=== PATIENT | female | born 1950 | race African-American/Black ===

== ENCOUNTER 2017-05-12 13:43 | Inpatient (IN) | payer OTHER ==
[~2017-05-12] VITALS: Ht 175.3 cm; Wt 108.0 kg
[2017-05-12] MEDS ORDERED: SODIUM CHLORIDE 0.9% 1,000 ML IVB ONE (14:05)
[2017-05-12] MEDS ORDERED: ACETAMINOPHEN 500 MG TAB PO ONE (14:15)
[2017-05-12] MEDS ORDERED: LEVOFLOXACIN 500MG 100 ML IV ONE (14:15)
[2017-05-12 14:51] LABS: Basophils # (auto) 0.2 uL; Lymphocytes # (auto) 2.7 uL; Mean Corpuscular Hemoglobin 24.3 pg (28.0-32.0); Mean Corpuscular Hgb Conc. 31.3 g/dL (32.0-36.0)
[2017-05-12 14:53] LABS: Basophils % (auto) 0.6 % (0.0-2.0); Eosinophils # (auto) 0 uL; Eosinophils % (auto) 0.1 % (0.0-7.0); Hematocrit 38.1 % (36.0-46.0); Lymphocytes % (auto) 9.1 % (10.0-50.0); Mean Corpuscular Volume 77.4 fL (80.0-100.0); Monocytes # (auto) 1.7 uL; Monocytes % (auto) 5.6 % (0.0-12.0); Neutrophils # (auto) 25.3 uL; Neutrophils % (auto) 84.6 % (37.0-80.0); Platelet Count (auto) 397 10^3/uL (140-450); Red Blood Cells 4.93 10^6/uL (4.0-5.20); White Blood Cell 29.9 10^3/uL (4.4-10.8)
[2017-05-12 15:06] LABS: INR 1.28 (0.9-1.15)
[2017-05-12 15:09] LABS: Albumin 3.2 g/dL (3.4-5.0); BUN/Creatinine Ratio 9.6; Bilirubin, Total 2.1 mg/dL (0.2-1.0); Calcium 8.9 mg/dL (8.5-10.1); Potassium 3.1 mmol/L (3.5-5.1); Total Protein 8.6 g/dL (6.4-8.2)
[2017-05-12 15:18] LABS: Magnesium 2.2 mg/dL (1.6-2.6)
[2017-05-12] MEDS ORDERED: POTASSIUM CHL 20MEQ/100ML 100 ML IV ONE (15:45)
[2017-05-12] MEDS ORDERED: OSELTAMIVIR 75 MG CAP PO ONE (16:30)
[2017-05-12] MEDS ORDERED: SODIUM CHLORIDE 0.9% 1,000 ML IV ONE (16:30)
[2017-05-12] MEDS ORDERED: POTASSIUM CHL 20 Meq TABLET PO ONE (16:30)
[2017-05-12] MEDS ORDERED: PANTOPRAZOLE 40 MG/10 ML VIAL IV ONE (16:30)
[2017-05-12] MEDS ORDERED: ACETAMINOPHEN 500 MG TAB PO PRN (16:45)
[2017-05-12] MEDS: BUDESONIDE (INHALATION) 0.5 MG/2 ML NEB NEB SCH (18:10)
[2017-05-12] MEDS: IPRATROPIUM BROM 0.5 MG/2.5ML INH SOL NEB SCH (18:10)
[2017-05-12] MEDS: ALBUTEROL SULF 2.5 MG/0.5ML(0.5%) NEB SOLN NEB SCH (18:10)
[2017-05-12 19:02] LABS: Urine Bacteria FEW /hpf (None Seen); Urine Blood 1+ /uL (Negative); Urine Mucus FEW (None Seen); Urine Specific Gravity 1.011 (1.001-1.035); Urine WBC 616 /hpf (0 - 5)
[2017-05-12] MEDS: metroNIDAZOLE 500 MG TAB PO SCH (20:18)
[2017-05-12 22:00] VITALS: BP 123/64
[2017-05-12 22:38] VITALS: BP 107/58
[2017-05-12 23:47] VITALS: BP 123/64
[2017-05-13] MEDS ORDERED: PRED5PAK PO (01:27)
[2017-05-13] MEDS ORDERED: GUAI200T2 PO (01:41)
[2017-05-13] MEDS ORDERED: FLUT110A INH (01:43)
[2017-05-13] MEDS: ALBUTEROL SULF 2.5 MG/0.5ML(0.5%) NEB SOLN NEB SCH ×3 (01:43→10:08)
[2017-05-13] MEDS ORDERED: TIOTCAP IN (01:43)
[2017-05-13] MEDS: IPRATROPIUM BROM 0.5 MG/2.5ML INH SOL NEB SCH ×5 (01:44→19:30)
[2017-05-13 05:00] VITALS: BP 105/56
[2017-05-13] MEDS: metroNIDAZOLE 500 MG TAB PO SCH (05:42)
[2017-05-13] MEDS: PANTOPRAZOLE 40 MG/10 ML VIAL IV SCH (06:40)
[2017-05-13] MEDS ORDERED: PNEUMOCOCCAL VACC POLYS 25 MCG/0.5 ML VIAL IM ONE ×2 (07:00→10:00)
[2017-05-13] MEDS ORDERED: INFLUENZA QUAD 2017-2018 0.5 ML SYRG IM ONE (07:00)
[2017-05-13 07:28] LABS: Basophils % (auto) 0.3 % (0.0-2.0); Eosinophils # (auto) 0.2 uL; Monocytes # (auto) 0.8 uL
[2017-05-13 07:31] LABS: Basophils # (auto) 0 uL; Hematocrit 31.9 % (36.0-46.0); Lymphocytes % (auto) 5.6 % (10.0-50.0); Mean Corpuscular Hemoglobin 24.1 pg (28.0-32.0); Mean Corpuscular Hgb Conc. 31.5 g/dL (32.0-36.0); Mean Corpuscular Volume 76.7 fL (80.0-100.0); Monocytes % (auto) 4.5 % (0.0-12.0); Neutrophils # (auto) 15.9 uL; Neutrophils % (auto) 88.6 % (37.0-80.0); Platelet Count (auto) 342 10^3/uL (140-450); Red Blood Cells 4.16 10^6/uL (4.0-5.20); Red Cell Distribution Width 17.2 % (11.8-14.3); White Blood Cell 17.9 10^3/uL (4.4-10.8)
[2017-05-13 07:47] LABS: Albumin 2.6 g/dL (3.4-5.0); BUN/Creatinine Ratio 10.4; Bilirubin, Total 1.2 mg/dL (0.2-1.0); Calcium 8.6 mg/dL (8.5-10.1); Potassium 3.7 mmol/L (3.5-5.1); Total Protein 7.1 g/dL (6.4-8.2)
[2017-05-13 08:16] VITALS: BP 117/63
[2017-05-13] MEDS: LEVOFLOXACIN 500MG 100 ML IV SCH (09:48)
[2017-05-13] MEDS ORDERED: OSELTAMIVIR 30 MG CAP PO SCH (10:00)
[2017-05-13] MEDS: BUDESONIDE (INHALATION) 0.5 MG/2 ML NEB NEB SCH ×2 (10:09→19:30)
[2017-05-13 11:58] VITALS: BP 102/59
[2017-05-13] MEDS ORDERED: SODIUM CHLORIDE 0.9% 1,000 ML IV ONE ×2 (12:30)
[2017-05-13] MEDS ORDERED: VANCOMYCIN 1GM/250ML 250 ML IV ONE (12:30)
[2017-05-13] MEDS ORDERED: VANCOMYCIN PER PHARMACY 1,000 MG IV SCH (12:30)
[2017-05-13] MEDS ORDERED: methylPREDNISolone SOD SUCC 125 MG/2 ML VL IV ONE (12:45)
[2017-05-13] MEDS: VANCOMYCIN 1GM/250ML 250 ML IV SCH (14:11)
[2017-05-13] MEDS: LEVALBUTEROL HCL 1.25 MG/0.5 ML NEB SOLN NEB SCH ×2 (14:16→19:30)
[2017-05-13 16:16] VITALS: BP 126/86
[2017-05-13] MEDS: PIPERACILLIN-TAZOB 3.375GM 100 ML IV SCH ×2 (18:07→23:37)
[2017-05-13 22:17] VITALS: BP 121/78
[2017-05-14] MEDS: VANCOMYCIN 1GM/250ML 250 ML IV SCH ×2 (01:34→15:16)
[2017-05-14 05:36] VITALS: BP 122/67
[2017-05-14] MEDS: PIPERACILLIN-TAZOB 3.375GM 100 ML IV SCH ×4 (06:10→23:53)
[2017-05-14] MEDS: IPRATROPIUM BROM 0.5 MG/2.5ML INH SOL NEB SCH ×4 (06:27→20:09)
[2017-05-14] MEDS: LEVALBUTEROL HCL 1.25 MG/0.5 ML NEB SOLN NEB SCH ×3 (06:27→20:09)
[2017-05-14 07:10] LABS: Basophils # (auto) 0 uL; Eosinophils # (auto) 0 uL; Lymphocytes # (auto) 0.5 uL; Monocytes # (auto) 0.2 uL; White Blood Cell 11.3 10^3/uL (4.4-10.8)
[2017-05-14 07:14] LABS: Basophils % (auto) 0.1 % (0.0-2.0); Hemoglobin 10.1 g/dL (12.2-16.2); Lymphocytes % (auto) 4.3 % (10.0-50.0); Mean Corpuscular Hemoglobin 24.1 pg (28.0-32.0); Mean Corpuscular Hgb Conc. 31.5 g/dL (32.0-36.0); Mean Corpuscular Volume 76.7 fL (80.0-100.0); Neutrophils # (auto) 10.6 uL; Neutrophils % (auto) 93.6 % (37.0-80.0); Platelet Count (auto) 378 10^3/uL (140-450); Red Blood Cells 4.17 10^6/uL (4.0-5.20); Red Cell Distribution Width 17.1 % (11.8-14.3)
[2017-05-14 08:16] LABS: Albumin 2.8 g/dL (3.4-5.0); BUN/Creatinine Ratio 10.3; Bilirubin, Total 0.8 mg/dL (0.2-1.0); Calcium 9.3 mg/dL (8.5-10.1); Potassium 3.8 mmol/L (3.5-5.1)
[2017-05-14 09:00] VITALS: BP 130/64
[2017-05-14] MEDS: PANTOPRAZOLE 40 MG/10 ML VIAL IV SCH (09:53)
[2017-05-14] MEDS: methylPREDNISolone SOD SUCC 125 MG/2 ML VL IV SCH (09:53)
[2017-05-14] MEDS: LEVOFLOXACIN 500MG 100 ML IV SCH (09:54)
[2017-05-14] MEDS ORDERED: PNEUMOCOCCAL VACC POLYS 25 MCG/0.5 ML VIAL IM ONE (10:00)
[2017-05-14] MEDS: BUDESONIDE (INHALATION) 0.5 MG/2 ML NEB NEB SCH ×2 (10:12→20:09)
[2017-05-14 12:00] VITALS: BP 124/56
[2017-05-14 17:36] VITALS: BP 108/78
[2017-05-14 21:56] VITALS: BP 136/65
[2017-05-14] MEDS ORDERED: hydrOXYzine 25 MG TAB or CAP PO SCH (22:00)
[2017-05-15] MEDS: VANCOMYCIN 1GM/250ML 250 ML IV SCH (02:02)
[2017-05-15 04:59] VITALS: BP 143/77
[2017-05-15] MEDS: PIPERACILLIN-TAZOB 3.375GM 100 ML IV SCH (06:10)
[2017-05-15 06:52] LABS: Basophils # (auto) 0 uL; Basophils % (auto) 0.1 % (0.0-2.0); Eosinophils # (auto) 0 uL; Mean Corpuscular Hgb Conc. 31.1 g/dL (32.0-36.0); Neutrophils # (auto) 12.8 uL
[2017-05-15 06:54] LABS: Eosinophils % (auto) 0.1 % (0.0-7.0); Hematocrit 29.1 % (36.0-46.0); Lymphocytes # (auto) 2.2 uL; Lymphocytes % (auto) 13.7 % (10.0-50.0); Mean Corpuscular Hemoglobin 23.9 pg (28.0-32.0); Mean Corpuscular Volume 76.9 fL (80.0-100.0); Monocytes # (auto) 0.8 uL; Monocytes % (auto) 5.3 % (0.0-12.0); Neutrophils % (auto) 80.8 % (37.0-80.0); Platelet Count (auto) 371 10^3/uL (140-450); Red Blood Cells 3.78 10^6/uL (4.0-5.20); Red Cell Distribution Width 17.2 % (11.8-14.3); White Blood Cell 15.8 10^3/uL (4.4-10.8)
[2017-05-15 07:09] LABS: Calcium 9.2 mg/dL (8.5-10.1); Potassium 3.6 mmol/L (3.5-5.1)
[2017-05-15 07:21] LABS: Albumin 2.7 g/dL (3.4-5.0); Bilirubin, Total 0.7 mg/dL (0.2-1.0); Total Protein 7.1 g/dL (6.4-8.2)
[2017-05-15] MEDS: LEVALBUTEROL HCL 1.25 MG/0.5 ML NEB SOLN NEB SCH (07:25)
[2017-05-15] MEDS: IPRATROPIUM BROM 0.5 MG/2.5ML INH SOL NEB SCH ×2 (07:25→10:47)
[2017-05-15] MEDS: BUDESONIDE (INHALATION) 0.5 MG/2 ML NEB NEB SCH (07:26)
[2017-05-15 08:00] VITALS: BP 123/73
[2017-05-15] MEDS ORDERED: CALCIUM CARB 500 MG CHEW TAB PO ONE (09:00)
[2017-05-15] MEDS: PANTOPRAZOLE 40 MG/10 ML VIAL IV SCH (09:32)
[2017-05-15] MEDS: LEVOFLOXACIN 500MG 100 ML IV SCH (09:32)
[2017-05-15] MEDS: methylPREDNISolone SOD SUCC 125 MG/2 ML VL IV SCH (09:32)
[2017-05-15 10:04] VITALS: BP 123/73
== END 2017-05-15 12:00 | disposition home or self-care (01) | DRG 871 ==
LOC: ER 13:43 → OVERFLOW 13:44 → EAST 23:19
PROVIDERS: ADMIT Internal Medicine; ATTEND Family Medicine
DX: A41.9 Sepsis, unspecified organism (principal); J18.1 Lobar pneumonia, unspecified organism; R65.21 Severe sepsis with septic shock; E87.1 Hypo-osmolality and hyponatremia; J45.901 Unspecified asthma with (acute) exacerbation; N39.0 Urinary tract infection, site not specified; M16.12 Unilateral primary osteoarthritis, left hip; Z60.2 Problems related to living alone; E87.6 Hypokalemia; E86.0 Dehydration; Z23 Encounter for immunization; Z79.82 Long term (current) use of aspirin; Z88.5 Allergy status to narcotic agent
CPT/HCPCS: 36415; 71045; 80053; 80202; 81001; 82565; 83605; 83735; 84484; 85025; 85610; 85730; 87040; 87070; 87086; 87205; 87804; 93005; 94640; 96365; 96375; 99291; C9113; G9035; J1956; J2543; J3480

== ENCOUNTER 2017-11-16 13:49 | Inpatient (IN) | payer OTHER ==
[~2017-11-16] VITALS: Ht 175.3 cm; Wt 96.8 kg
[~2017-11-16 13:49] MED LIST: FLUT110A INH; GUAI200T2 PO; PRED5PAK PO; TIOTCAP IN
[2017-11-16] MEDS ORDERED: ALBUTEROL SULF 2.5 MG/0.5ML(0.5%) NEB SOLN HHN ONE (14:15)
[2017-11-16] MEDS ORDERED: methylPREDNISolone SOD SUCC 125 MG/2 ML VL IV ONE (14:15)
[2017-11-16] MEDS ORDERED: IPRATROPIUM BROM 0.5 MG/2.5ML INH SOL HHN ONE (14:15)
[2017-11-16 15:13] LABS: Eosinophils # (auto) 0.3 uL; Hemoglobin 11.1 g/dL (12.2-16.2); Neutrophils # (auto) 13.3 uL; Nucleated Red Blood Cells % 0.2 %
[2017-11-16 15:15] LABS: Basophils # (auto) 0.1 uL; Basophils % (auto) 0.6 % (0.0-2.0); Eosinophils % (auto) 2.1 % (0.0-7.0); Hematocrit 35.5 % (36.0-46.0); Lymphocytes % (auto) 6.6 % (10.0-50.0); Mean Corpuscular Hemoglobin 25.2 pg (28.0-32.0); Mean Corpuscular Hgb Conc. 31.4 g/dL (32.0-36.0); Mean Corpuscular Volume 80.3 fL (80.0-100.0); Monocytes # (auto) 0.5 uL; Monocytes % (auto) 3.3 % (0.0-12.0); Neutrophils % (auto) 87.4 % (37.0-80.0); Platelet Count (auto) 444 10^3/uL (140-450); Red Blood Cells 4.42 10^6/uL (4.0-5.20); Red Cell Distribution Width 15.9 % (11.8-14.3); White Blood Cell 15.2 10^3/uL (4.4-10.8)
[2017-11-16 15:40] LABS: Alanine Aminotransferase 23 U/L (13-56); Albumin 3.4 g/dL (3.4-5.0); Alkaline Phosphatase 126 U/L (45-117); Anion Gap 11 (5-15); Aspartate Aminotransferase 14 U/L (15-37); BUN/Creatinine Ratio 14.3; Bilirubin, Total 0.3 mg/dL (0.2-1.0); Blood Urea Nitrogen 14 mg/dL (7-18); Calcium 8.8 mg/dL (8.5-10.1); Carbon Dioxide 22 mmol/L (21-32); Chloride 106 mmol/L (98-107); GFR African American 73 mL/min; GFR Non-African American 60 mL/min; Glucose 94 mg/dL (74-106); Magnesium 2.8 mg/dL (1.6-2.6); Potassium 3.8 mmol/L (3.5-5.1); Sodium 139 mmol/L (136-145); Total Protein 8.5 g/dL (6.4-8.2)
[2017-11-16] MEDS: methylPREDNISolone SOD SUCC 40 MG/ML VL IV SCH (18:00)
[2017-11-16] MEDS ORDERED: cefTRIAXone 1GM/10ml IVPUSH 10 ML IV ONE (18:00)
[2017-11-16] MEDS ORDERED: cloNIDine HCL 0.1 MG TAB PO PRN (18:15)
[2017-11-16] MEDS ORDERED: PANTOPRAZOLE 40 MG TAB PO ONE (18:15)
[2017-11-16] MEDS ORDERED: HYDROcodone-ACET 5/325MG TAB PO PRN (18:15)
[2017-11-16] MEDS ORDERED: DOCUSATE SOD 100 MG CAP PO PRN (18:15)
[2017-11-16] MEDS ORDERED: TEMAZEPAM 15 MG CAP PO PRN (18:15)
[2017-11-16] MEDS ORDERED: MORPHINE SULF INJ 2 MG/ML SYRINGE 1ML IV PRN ×2 (18:15)
[2017-11-16] MEDS ORDERED: NITROGLYCERIN 0.4 MG SL TAB SL PRN (18:15)
[2017-11-16] MEDS ORDERED: ONDANSETRON HCL 4 MG/2 ML VIAL IV PRN (18:15)
[2017-11-16] MEDS: IPRATROPIUM BROM 0.5 MG/2.5ML INH SOL NEB SCH ×2 (18:30→22:08)
[2017-11-16] MEDS: ALBUTEROL SULF 2.5 MG/0.5ML(0.5%) NEB SOLN NEB SCH ×2 (18:30→22:08)
[2017-11-16 18:38] LABS: Urine Bacteria NONE SEEN /hpf (None Seen); Urine Blood Negative /uL (Negative); Urine Specific Gravity 1.002 (1.001-1.035); Urine WBC <1 /hpf (0 - 5)
[2017-11-16 18:43] VITALS: BP 156/91
[2017-11-16 20:30] VITALS: BP 131/71
[2017-11-16] MEDS: SODIUM CHLOR 0.9% PF (SALINE LOCK) 10ML VIAL/SYR IV SCH (22:00)
[2017-11-16] MEDS: FAMOTIDINE 20 MG TAB PO SCH (22:00)
[2017-11-16] MEDS: BUDESONIDE (INHALATION) 0.5 MG/2 ML NEB NEB SCH (22:08)
[2017-11-16 22:21] LABS: Lactic Acid w/Reflex 3.6 mmol/L (0.4-2.0)
[2017-11-17] MEDS: methylPREDNISolone SOD SUCC 40 MG/ML VL IV SCH ×4 (00:13→21:16)
[2017-11-17] MEDS: ACETAMINOPHEN 325 MG TAB PO PRN ×3 (00:39→21:58)
[2017-11-17] MEDS: ALBUTEROL SULF 2.5 MG/0.5ML(0.5%) NEB SOLN NEB SCH ×6 (01:42→22:29)
[2017-11-17] MEDS: IPRATROPIUM BROM 0.5 MG/2.5ML INH SOL NEB SCH ×6 (01:43→22:29)
[2017-11-17 05:22] VITALS: BP 125/79
[2017-11-17] MEDS: SODIUM CHLOR 0.9% PF (SALINE LOCK) 10ML VIAL/SYR IV SCH ×3 (06:28→21:16)
[2017-11-17 07:35] LABS: Basophils # (auto) 0 uL; Basophils % (auto) 0.2 % (0.0-2.0); Eosinophils # (auto) 0 uL; Monocytes # (auto) 0.2 uL; Neutrophils % (auto) 91.9 % (37.0-80.0); Red Cell Distribution Width 15.7 % (11.8-14.3)
[2017-11-17 07:37] LABS: Hematocrit 32.5 % (36.0-46.0); Hemoglobin 10.1 g/dL (12.2-16.2); Lymphocytes # (auto) 1.1 uL; Lymphocytes % (auto) 6.5 % (10.0-50.0); Mean Corpuscular Hgb Conc. 31.2 g/dL (32.0-36.0); Mean Corpuscular Volume 80.2 fL (80.0-100.0); Monocytes % (auto) 1.4 % (0.0-12.0); Neutrophils # (auto) 16.2 uL; Platelet Count (auto) 419 10^3/uL (140-450); Red Blood Cells 4.06 10^6/uL (4.0-5.20); White Blood Cell 17.7 10^3/uL (4.4-10.8)
[2017-11-17 08:04] LABS: Albumin 3.1 g/dL (3.4-5.0); BUN/Creatinine Ratio 13.6; Bilirubin, Total 0.3 mg/dL (0.2-1.0); Calcium 9.2 mg/dL (8.5-10.1); Total Protein 7.5 g/dL (6.4-8.2)
[2017-11-17 09:00] VITALS: BP 145/83
[2017-11-17] MEDS: BUDESONIDE (INHALATION) 0.5 MG/2 ML NEB NEB SCH ×2 (09:41→22:29)
[2017-11-17] MEDS: PANTOPRAZOLE 40 MG TAB PO SCH (09:48)
[2017-11-17] MEDS: cefTRIAXone 1GM/10ml IVPUSH 10 ML IV SCH (09:48)
[2017-11-17] MEDS: MULTIPLE VITAMIN TAB PO SCH (09:48)
[2017-11-17] MEDS: FAMOTIDINE 20 MG TAB PO SCH ×2 (10:00→21:16)
[2017-11-17 13:00] VITALS: BP 142/82
[2017-11-17] MEDS ORDERED: AZITHROMYCIN 250 MG TAB PO ONE (16:45)
[2017-11-17] MEDS: guaiFENesin-DM 100/10mg/5ml SYR PO PRN ×2 (17:30→21:58)
[2017-11-17 17:50] VITALS: BP 154/76
[2017-11-17 22:25] VITALS: BP 129/76
[2017-11-17] MEDS ORDERED: ACETAMINOPHEN 325 MG TAB PO ONE (23:00)
[2017-11-17] MEDS ORDERED: guaiFENesin-DM 100/10mg/5ml SYR PO PRN (23:00)
[2017-11-18] MEDS: IPRATROPIUM BROM 0.5 MG/2.5ML INH SOL NEB SCH ×5 (02:14→14:15)
[2017-11-18] MEDS: ALBUTEROL SULF 2.5 MG/0.5ML(0.5%) NEB SOLN NEB SCH ×5 (02:14→14:15)
[2017-11-18] MEDS: methylPREDNISolone SOD SUCC 40 MG/ML VL IV SCH ×2 (04:59→12:03)
[2017-11-18] MEDS: SODIUM CHLOR 0.9% PF (SALINE LOCK) 10ML VIAL/SYR IV SCH ×2 (05:00→14:00)
[2017-11-18 05:39] VITALS: BP 129/79
[2017-11-18 08:00] VITALS: BP 129/80
[2017-11-18] MEDS: cefTRIAXone 1GM/10ml IVPUSH 10 ML IV SCH (09:32)
[2017-11-18] MEDS: MULTIPLE VITAMIN TAB PO SCH (09:32)
[2017-11-18] MEDS: FAMOTIDINE 20 MG TAB PO SCH (09:33)
[2017-11-18] MEDS ORDERED: AZITHROMYCIN 250 MG TAB PO SCH (10:00)
[2017-11-18] MEDS: PANTOPRAZOLE 40 MG TAB PO SCH (10:00)
[2017-11-18] MEDS: BUDESONIDE (INHALATION) 0.5 MG/2 ML NEB NEB SCH (10:28)
[2017-11-18 13:00] VITALS: BP 125/72
[2017-11-18] MEDS ORDERED: PANT40T PO (14:16)
[2017-11-18] MEDS ORDERED: AZIT250T7 PO (14:16)
[2017-11-18] MEDS ORDERED: AZIT250T8 PO (14:19)
== END 2017-11-18 17:45 | disposition home or self-care (01) | DRG 189 ==
LOC: ER 13:49 → TELE 13:50 → TELE-CENTR 20:00
PROVIDERS: ADMIT Internal Medicine; ATTEND Internal Medicine
DX: J96.00 Acute respiratory failure, unspecified whether with hypoxia or hypercapnia (principal); J44.0 Chronic obstructive pulmonary disease with (acute) lower respiratory infection; J45.901 Unspecified asthma with (acute) exacerbation; D63.8 Anemia in other chronic diseases classified elsewhere; E78.5 Hyperlipidemia, unspecified; E83.41 Hypermagnesemia; J20.9 Acute bronchitis, unspecified; M10.9 Gout, unspecified; Z96.642 Presence of left artificial hip joint; K21.9 Gastro-esophageal reflux disease without esophagitis; N18.9 Chronic kidney disease, unspecified; T38.0X5A Adverse effect of glucocorticoids and synthetic analogues, initial encounter; Z85.3 Personal history of malignant neoplasm of breast; Z79.52 Long term (current) use of systemic steroids; Z87.01 Personal history of pneumonia (recurrent)
CPT/HCPCS: 36415; 71045; 80053; 81001; 83605; 83735; 83880; 84484; 85025; 87040; 87070; 87077; 87086; 87186; 87205; 93005; 93306; 94640; 96374; 96375; 99291; J0696

== ENCOUNTER 2018-05-08 00:42 | Emergency (ER) | payer OTHER ==
[~2018-05-08] VITALS: Ht 170.2 cm; Wt 74.8 kg
[~2018-05-08 00:42] MED LIST changes: +AZIT250T8 PO; +PANT40T PO
[2018-05-08] MEDS ORDERED: ONDANSETRON HCL 4 MG/2 ML VIAL IV ONE (02:45)
[2018-05-08 03:05] LABS: Mean Corpuscular Volume 76.9 fL (80.0-100.0)
[2018-05-08 03:06] LABS: Hematocrit 35.6 % (36.0-46.0); Hemoglobin 11.7 g/dL (12.2-16.2); Mean Corpuscular Hemoglobin 25.2 pg (28.0-32.0); Mean Corpuscular Hgb Conc. 32.8 g/dL (32.0-36.0); Platelet Count (auto) 356 10^3/uL (140-450); Red Blood Cells 4.64 10^6/uL (4.0-5.20); Red Cell Distribution Width 18.5 % (11.8-14.3)
[2018-05-08 03:08] LABS: White Blood Cell 30.6 10^3/uL (4.4-10.8)
[2018-05-08 03:09] LABS: Basophils % (manual) 0 (0.0-2.0); Blast Cells 0; Metamyelocytes % 0; Myelocytes % 0; Promyelocytes % 0; Reactive Lymphocytes 0
[2018-05-08] MEDS ORDERED: MORPHINE SULFATE 4 MG/ML SYR/VIAL IV ONE (03:15)
[2018-05-08] MEDS ORDERED: SODIUM CHLORIDE 0.9% 1,000 ML IV ONE (03:15)
[2018-05-08 03:52] LABS: Urine Bacteria FEW /hpf (None Seen); Urine Blood TRACE /uL (Negative); Urine Mucus FEW (None Seen); Urine WBC 12 /hpf (0 - 5)
[2018-05-08 03:55] LABS: Band Neutrophils % (manual) 5; Eosinophils % (manual) 2 (0-7); Lymphocytes % (manual) 4 (10.0-50.0); Monocytes % (manual) 5 (0-12)
[2018-05-08 04:00] LABS: Alanine Aminotransferase 23 U/L (13-56); Albumin 2.9 g/dL (3.4-5.0); Anion Gap 12 (5-15); Aspartate Aminotransferase 21 U/L (15-37); Blood Urea Nitrogen 12 mg/dL (7-18); Calcium 8.2 mg/dL (8.5-10.1); Carbon Dioxide 20 mmol/L (21-32); Chloride 106 mmol/L (98-107); GFR African American 71 mL/min; GFR Non-African American 59 mL/min; Glucose 91 mg/dL (74-106); Sodium 138 mmol/L (136-145)
[2018-05-08] MEDS ORDERED: metroNIDAZOLE 500 MG TAB PO ONE (04:00)
[2018-05-08] MEDS ORDERED: cefTRIAXone 1GM/50ML D5W 50 ML IV ONE (04:00)
[2018-05-08 04:03] LABS: Lactic Acid w/Reflex 2.4 mmol/L (0.4-2.0)
[2018-05-08 04:05] LABS: Alkaline Phosphatase 124 U/L (45-117); Bilirubin, Total 0.9 mg/dL (0.2-1.0); Total Protein 7.6 g/dL (6.4-8.2)
[2018-05-08 04:14] LABS: Potassium 2.7 mmol/L (3.5-5.1)
[2018-05-08] MEDS ORDERED: POTASSIUM CHL 20 Meq TABLET PO ONE ×2 (04:45→04:58)
[2018-05-08] MEDS: SODIUM CHLORIDE 0.9% 1,000 ML IV SCH ×2 (05:11→08:27)
[2018-05-08] MEDS ORDERED: MORPHINE SULFATE 4 MG/ML SYR/VIAL IV PRN (05:15)
[2018-05-08] MEDS ORDERED: ACETAMINOPHEN 325 MG TAB PO PRN (05:15)
[2018-05-08] MEDS ORDERED: NITROGLYCERIN 0.4 MG SL TAB SL PRN (05:15)
[2018-05-08] MEDS ORDERED: ONDANSETRON HCL 4 MG/2 ML VIAL IV PRN (05:15)
[2018-05-08] MEDS ORDERED: TEMAZEPAM 15 MG CAP PO PRN (05:15)
[2018-05-08] MEDS ORDERED: metroNIDAZOLE 500MG/100ML 100 ML IV SCH (06:00)
[2018-05-08] MEDS ORDERED: ALBUTEROL SULF 2.5 MG/0.5ML(0.5%) NEB SOLN NEB PRN (06:15)
[2018-05-08 06:26] VITALS: BP 150/80
[2018-05-08] MEDS ORDERED: PANTOPRAZOLE 40 MG TAB PO SCH (10:00)
[2018-05-08] MEDS ORDERED: LEVOFLOXACIN 500MG 100 ML IV SCH (10:00)
[2018-05-08 11:42] VITALS: BP 119/62
== END 2018-05-08 12:05 | disposition short-term general hospital (02) ==
LOC: EDUNIT# 00:42 → EDBD 00:42 → ER 00:45 → UNDOADMIN 05:35 → TELE 05:35 → ER 12:05
DX: S33.5XXA Sprain of ligaments of lumbar spine, initial encounter (principal); A40.3 Sepsis due to Streptococcus pneumoniae; J13 Pneumonia due to Streptococcus pneumoniae; N39.0 Urinary tract infection, site not specified; E87.6 Hypokalemia; M79.10 Myalgia, unspecified site; J45.909 Unspecified asthma, uncomplicated; K21.9 Gastro-esophageal reflux disease without esophagitis; E78.5 Hyperlipidemia, unspecified; Z88.5 Allergy status to narcotic agent; Z88.8 Allergy status to other drugs, medicaments and biological substances; Z79.899 Other long term (current) drug therapy; X58.XXXA Exposure to other specified factors, initial encounter; Y93.89 Activity, other specified; Y99.8 Other external cause status; Y92.89 Other specified places as the place of occurrence of the external cause
CPT/HCPCS: 36415; 71045; 74176; 80053; 81001; 83605; 84484; 85007; 85027; 87040; 87086; 93005; 96361; 96365; 96367; 96375; 99285; J0696; J1956; J2270; J2405; J3490; J7030

== ENCOUNTER 2018-07-22 00:02 | Emergency (ER) | payer SELFPAY ==
[~2018-07-22] VITALS: Ht 175.3 cm; Wt 81.6 kg
[2018-07-22 01:07] LABS: Basophils # (auto) 0.1 uL; Basophils % (auto) 0.9 % (0.0-2.0); Eosinophils # (auto) 0.3 uL; Eosinophils % (auto) 2.2 % (0.0-7.0); Hematocrit 36.6 % (36.0-46.0); Hemoglobin 11.7 g/dL (12.2-16.2); Lymphocytes # (auto) 2.8 uL; Lymphocytes % (auto) 23.8 % (10.0-50.0); Mean Corpuscular Hemoglobin 25.7 pg (28.0-32.0); Mean Corpuscular Volume 80.5 fL (80.0-100.0); Monocytes # (auto) 0.8 uL; Monocytes % (auto) 6.6 % (0.0-12.0); Neutrophils # (auto) 7.8 uL; Neutrophils % (auto) 66.5 % (37.0-80.0); Nucleated Red Blood Cells % 0.1 %; Platelet Count (auto) 372 10^3/uL (140-450); Red Blood Cells 4.54 10^6/uL (4.0-5.20); Red Cell Distribution Width 17.3 % (11.8-14.3); White Blood Cell 11.7 10^3/uL (4.4-10.8)
[2018-07-22 01:26] LABS: Chloride 109 mmol/L (98-107); Potassium 3.8 mmol/L (3.5-5.1); Sodium 140 mmol/L (136-145)
[2018-07-22 01:30] LABS: Anion Gap 7 (5-15); Blood Urea Nitrogen 12 mg/dL (7-18); Calcium 8.5 mg/dL (8.5-10.1); Carbon Dioxide 24 mmol/L (21-32); Glucose 101 mg/dL (74-106)
[2018-07-22 01:33] LABS: Alanine Aminotransferase 26 U/L (13-56); Aspartate Aminotransferase 22 U/L (15-37); BUN/Creatinine Ratio 13.2; GFR African American 79 mL/min; GFR Non-African American 65 mL/min
[2018-07-22 01:36] LABS: Alkaline Phosphatase 175 U/L (45-117); Bilirubin, Total 0.1 mg/dL (0.2-1.0); Total Protein 7.8 g/dL (6.4-8.2)
[2018-07-22] MEDS ORDERED: ASPirin 81 mg TAB PO ONE (03:30)
[2018-07-22] MEDS ORDERED: MORPHINE SULFATE 4 MG/ML SYR/VIAL IV ONE (03:30)
[2018-07-22] MEDS ORDERED: LEVOFLOXACIN 500MG 100 ML IV ONE (04:00)
[2018-07-22 04:20] LABS: Urine Bacteria FEW /hpf (None Seen); Urine Blood Negative /uL (Negative); Urine WBC 1 /hpf (0 - 5)
[2018-07-22 04:25] LABS: INR 0.96 (0.9-1.15); Partial Thromboplastin Time 24.2 sec (23.78-33.04); Prothrombin Time 10.3 sec (9.27-12.13)
[2018-07-22] MEDS ORDERED: SODIUM CHLORIDE 0.9% 500 ML IV ONE (04:30)
[2018-07-22] MEDS ORDERED: metroNIDAZOLE 500MG/100ML 100 ML IV ONE (05:00)
[2018-07-22 09:00] VITALS: BP 127/77
[2018-07-22] MEDS ORDERED: NITROGLYCERIN 0.4 MG SL TAB SL ONE (10:00)
== END 2018-07-22 09:39 | disposition home or self-care (01) ==
LOC: ER 00:05
DX: R07.89 Other chest pain (principal); R19.7 Diarrhea, unspecified; D72.829 Elevated white blood cell count, unspecified; A09 Infectious gastroenteritis and colitis, unspecified; J45.909 Unspecified asthma, uncomplicated; E78.5 Hyperlipidemia, unspecified; Z90.89 Acquired absence of other organs; Z88.6 Allergy status to analgesic agent; Z91.040 Latex allergy status
CPT/HCPCS: 36415; 71046; 74176; 80053; 81001; 83690; 83880; 84484; 85025; 85610; 85730; 87040; 93005; 94761; 96365; 96367; 99284; J1956; J3490; J7030

== ENCOUNTER 2018-08-05 16:47 | Emergency (ER) | payer SELFPAY ==
[~2018-08-05] VITALS: Ht 177.8 cm; Wt 68.0 kg
[2018-08-05 16:57] VITALS: BP 120/78
[2018-08-05 17:36] LABS: Basophils # (auto) 0.1 uL; Mean Corpuscular Hgb Conc. 31.7 g/dL (32.0-36.0)
[2018-08-05 17:43] LABS: Basophils % (auto) 0.5 % (0.0-2.0); Eosinophils # (auto) 0.1 uL; Eosinophils % (auto) 0.8 % (0.0-7.0); Hematocrit 36.6 % (36.0-46.0); Hemoglobin 11.6 g/dL (12.2-16.2); Lymphocytes % (auto) 17.9 % (10.0-50.0); Mean Corpuscular Hemoglobin 25.4 pg (28.0-32.0); Mean Corpuscular Volume 80.1 fL (80.0-100.0); Monocytes # (auto) 1.3 uL; Monocytes % (auto) 7.7 % (0.0-12.0); Neutrophils # (auto) 12.4 uL; Neutrophils % (auto) 73.1 % (37.0-80.0); Platelet Count (auto) 404 10^3/uL (140-450); Red Blood Cells 4.56 10^6/uL (4.0-5.20); Red Cell Distribution Width 16.9 % (11.8-14.3)
[2018-08-05 17:57] LABS: Chloride 104 mmol/L (98-107); Potassium 3.3 mmol/L (3.5-5.1); Sodium 138 mmol/L (136-145)
[2018-08-05 18:01] LABS: Alanine Aminotransferase 33 U/L (13-56); Albumin 3.1 g/dL (3.4-5.0); Anion Gap 11 (5-15); Aspartate Aminotransferase 22 U/L (15-37); BUN/Creatinine Ratio 12.2; Blood Urea Nitrogen 12 mg/dL (7-18); Calcium 8.8 mg/dL (8.5-10.1); Carbon Dioxide 23 mmol/L (21-32); GFR African American 73 mL/min; GFR Non-African American 60 mL/min; Glucose 99 mg/dL (74-106)
[2018-08-05 18:06] LABS: Alkaline Phosphatase 200 U/L (45-117); Bilirubin, Total 0.6 mg/dL (0.2-1.0); Total Protein 8.3 g/dL (6.4-8.2)
== END 2018-08-06 05:56 | disposition left against medical advice (07) ==
LOC: EDBD 16:47 → ER 16:50
DX: R11.2 Nausea with vomiting, unspecified (principal); Z53.21 Procedure and treatment not carried out due to patient leaving prior to being seen by health care provider
CPT/HCPCS: 36415; 80053; 84484; 85025; 93005

== ENCOUNTER 2019-05-09 18:18 | Emergency (ER) | payer MEDICARE, OTHER ==
[~2019-05-09] VITALS: Ht 175.3 cm; Wt 73.5 kg
[2019-05-09 19:51] VITALS: BP 108/55
[2019-05-09] MEDS ORDERED: ONDANSETRON ODT 4 MG TAB PO ONE (20:00)
[2019-05-09] MEDS ORDERED: SODIUM CHLORIDE 0.9% 1,000 ML IV ONE (20:15)
[2019-05-09] MEDS ORDERED: ONDANSETRON HCL 4 MG/2 ML VIAL IV ONE (20:15)
[2019-05-09] MEDS ORDERED: cefTRIAXone 1GM/50ML D5W 50 ML IV ONE (20:45)
== END 2019-05-09 22:23 | disposition home or self-care (01) ==
LOC: ER 18:18
DX: J06.9 Acute upper respiratory infection, unspecified (principal); R51 Headache; H92.09 Otalgia, unspecified ear; K21.9 Gastro-esophageal reflux disease without esophagitis; E78.5 Hyperlipidemia, unspecified; J45.909 Unspecified asthma, uncomplicated; Z87.891 Personal history of nicotine dependence; Z88.6 Allergy status to analgesic agent; Z88.8 Allergy status to other drugs, medicaments and biological substances; Z79.899 Other long term (current) drug therapy
CPT/HCPCS: 87804; 96365; 96375; 99283; J0696; J2405; J7030